=== PATIENT | female | born 2000 | race Asian ===

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

== ENCOUNTER 2021-02-15 12:27 | Day surgery (SDC) | payer OTHER ==
[2021-02-14 14:08] VITALS: BMI 23.6
[2021-02-15] MEDS ORDERED: Lidocaine 1% PF 5 ML VIAL ONE (12:49)
[2021-02-15] MEDS ORDERED: Sodium Bicarbonate 2.5 MEQ/5 ML VIAL ONE (12:49)
== END 2021-02-15 13:50 | disposition home or self-care (01) ==
LOC: ULT 12:27
PROVIDERS: ATTEND Otolaryngology Plastic Surgery within the Head & Neck
PROC: 0G9G3ZX Drainage of Left Thyroid Gland Lobe, Percutaneous Approach, Diagnostic (ICD-10-PCS; principal; 2021-02-15)
DX: E04.1 Nontoxic single thyroid nodule (principal)
CPT/HCPCS: 10005; 88173; 88305